=== PATIENT | male | born 1975 | race Caucasian/White ===

== ENCOUNTER 2023-03-26 14:01 | Emergency (ER) | payer OTHER, SELFPAY ==
[2023-03-26 15:11] VITALS: BP 155/86; PULSE 97; RESP 18; TEMP 36.8; O2SAT 97; BMI 41.0
--- NOTE | 2023-03-26 15:14 | ED_ITS ---
HPI - General Adult General Chief complaint: Syncope Stated complaint: reffered by urgent care Time Seen by Provider: 03/26/23 16:03 Source: patient Mode of arrival: ambulatory Limitations: no limitations History of Present Illness HPI narrative: Patient comes to the emergency room complaining of a syncopal episode and a laceration to the upper lip. Patient states that yesterday night, patient and his son went to a concert, went to bed around 03:00, woke up late in full panic around a.m. because they were late to take the kid to his summer job. Patient usually takes about 10 minutes to wake up and stand up out of bed. Today, patient stood up fast running, went downstairs, had a syncopal episode, fell for [place]a. Patient states that he never had chest pain or shortness of breath. Shortly after he woke up from passing out, he started feeling back to normal. Since then, patient has been feeling at baseline. Related Data Allergies Allergy/AdvReac Type Severity Reaction Status Date / Time No Known Allergies Allergy Verified 03/26/23 15:17 Review of Systems Review of Systems: Constitutional : No Weight loss, No Fever, No Chills, No Night Sweats, No Fatigue, No Malaise ENT/Mouth : No Hearing loss, No Ear Pain, No Nasal Congestion, No Sinus Pain, No Hoarseness, No sore throat, No Rhinorrhea, No Swallowing Difficulty Eyes: No Eye Pain, No Swelling, No Redness, No Foreign Body, No Discharge, No Vision Changes Cardiovascular : No Chest Pain, No SOB, No Dyspnea on Exertion, No Orthopnea, No Edema, No Palpitations, 1 syncopal episode Respiratory : No Cough, No Sputum, No Wheezing, No Smoke Exposure, No Dyspnea Gastrointestinal : No Nausea, No Vomiting, No Diarrhea, No Constipation, No abdominal Pain, No Hematochezia, No Melena Genitourinary : no irregular bleeding, No Dysuria, No Urinary Frequency, No Hematuria, No Urinary Incontinence, No Urgency, No Flank Pain, No Urinary Flow Changes, No Hesitancy Musculoskeletal : No joint pain, No Myalgias, No Joint Swelling Skin : Laceration to the upper lip No Skin Lesions, No rash Neuro : No Weakness, No Numbness, No Paresthesias, 1 episode of loss of consciousness,, No Dizziness, No Headache Psych : No Anxiety/Panic, No Depression, No SI/HI/AH/VH, No Social Issues, Heme/Lymph: No Bruising, No Bleeding,No Lymphadenopathy Endocrine : No Polyuria, No Polydipsia, No Temperature Intolerance [facility] Social History Social History Smoked in Last 30 Days: No Use of substances other than those prescribed or required for medical reasons: No Advance Directives: No Advance Directives Information Provided: No Physical Exam ED Vital Signs: Vital Signs - 24 hr 03/26/23 15:11 03/26/23 16:58 03/26/23 16:58 Temperature 98.3 F Pulse Rate 97 82 82 Respiratory Rate 18 Blood Pressure 155/86 H 132/78 Pulse Oximetry 97 96 Oxygen Delivery Method Room Air Room Air 03/26/23 17:00 Temperature Pulse Rate 85 Respiratory Rate Blood Pressure 130/70 Pulse Oximetry Oxygen Delivery Method BMI result Body Mass Index 41.0 Const Other: Appearance: Alert. Oriented X3. No acute distress. Eyes: Pupils equal, round and reactive to light. ENT: Pharynx normal. Is a triangular shaped laceration with a flap to the upper lip Neck: Normal inspection. Neck supple. No lymph nodes noted. No crepitus CVS: Normal heart rate and rhythm. Pulses normal. Normal S1 and S2 Respiratory: No respiratory distress. Breath sounds normal. No Wheezing. No rales Abdomen: Soft and nontender. No rigidity. No distention. Skin: Skin warm and dry. Normal skin color. Normal skin turgor. Extremities: No lower extremity edema. No Lacerations. No Rash Neuro: Oriented X 3. No motor deficit. No sensory deficit. Moving all extremities. No slurred speech. CN 2 through 12 grossly intact Psych: calm, cooperative, normal affect Course Course Course Narrative: RME- 47 year old male presents for evaluation of a syncopal episode. He reports he had a late night at a concert. Reports getting home at 2:30am and waking up at 8am to bring his son to work. While running to wake up his son, he passed out and fell forward. He struck his upper lip on a TV stand. Reports feeling well currently. Denies any history of syncope Medications Administered Discontinued Medications Generic Name Dose Route Start Last Admin Trade Name Freq PRN Reason Stop Dose Admin Lidocaine HCl 6 ml 03/26/23 16:18 03/26/23 16:27 Lidocaine Hcl 2% 2 Ml Vial INFILTRATI 03/26/23 16:19 6 ml ONCE ONE Administration Procedures Laceration Laceration 1: Site: lip Size (cm): 1 Description: stellate, flap and irregular Depth: simple, single layer Local Anesthetic: lidocaine 2% Amount of anesthesia used (mL): 4 Pre-repair: irrigated extensively Skin layer closed with: other (Chromic gut) Size (cm): 5-0 Number of sutures: 6 Technique: simple, interrupted Medical Decision Making Medical Decision Making [facility] Narrative: Multiple calls and EKG,: Sinus rhythm, holidays eyes, necessitating additional ablation, no T-wave inversion, QTC 402 -troponin 1 is negative, which has a pain 7 hours after a syncopal episode -from patient's history, patient likely had a mild orthostatic hypotension leading to a syncopal episode. Patient's orthostatic vitals were negative, however they were pretty close of being negative on numbers. Patient was not lightheaded. -patient's lip was repaired with chromic gut 5-0, 6 stitches were applied Lab Data 03/26/23 15:27 03/26/23 15:27 Labs: Lab Results 03/26/23 03/26/23 03/26/23 Range/Units 15:27 15:27 15:27 WBC 12.6 H (4.8-10.8) X10*3/uL RBC 5.40 (4.60-5.80) X10*6/uL Hgb 16.1 (14.0-18.0) g/dl Hct 46.9 (42.0-52.0) % MCV 86.9 (80.0-98.0) fL MCH 29.8 (27.0-33.0) pg MCHC 34.3 (31.0-36.0) g/dl RDW 13.1 (11.0-16.0) % Plt Count 227 (160-400) X10*3/uL MPV 10.1 (9.4-12.4) fL Immature Gran % (Auto) 0.2 (0.0-0.4) % Neut % (Auto) 79.4 H (45-73) % Lymph % (Auto) 13.7 L (20-40) % [place] % (Auto) 6.3 (2-11) % Eos % (Auto) 0.2 (0-4) % Baso % (Auto) 0.2 (0-2) % Lymph # (Auto) 1.7 (1.2-4.9) X10*3/uL [place] # (Auto) 0.8 (0.1-1.2) X10*3/uL Eos # (Auto) 0.0 (0.0-0.4) X10*3/uL Baso # (Auto) 0.0 (0.0-0.2) X10*3/uL Abs Immat Gran (auto) 0.03 (0.00-0.03) X10*3/uL Absolute Neuts (auto) 10.0 H (2.0-8.3) x10*3/uL Absolute Nucleated RBC 0.000 (0.0-0.012) X10*3/uL Nucleated RBC % (auto) 0.0 (0.0-0.2) /100WBC Sodium 140 (135-145) mmol/L Potassium 3.9 (3.3-5.1) mmol/L Chloride 107 (96-108) mmol/L Carbon Dioxide 23 (22-29) mmol/L Anion Gap 14 (12-20) BUN 12 (9-16) mg/dL Creatinine 0.88 (0.5-1.4) mg/dL Estim Creat Clear Calc 132.1 Estimated GFR > 60 Random Glucose 121 H (60-115) mg/dL Calcium 9.7 (8.4-10.2) mg/dL Total Bilirubin 0.6 (0.0-1.0) mg/dL AST 28 (5-37) U/L ALT 35 (0-40) U/L Alkaline Phosphatase 72 (39-117) U/L Troponin I High Sens < 2.7 (<3.5-35.0) ng/L Total Protein 7.7 (6.5-8.0) g/dL Albumin 4.3 (3.5-5.0) g/dL Lipase 19 (8-78) U/L Discharge Plan Discharge Clinical Impression: Syncope due to orthostatic hypotension, Laceration of lip Patient Disposition: Home, Self-Care Instructions: Laceration (ED), Syncope (ED) Additional Instructions: Please follow-up with your primary care physician tomorrow. If you have any worsening or new symptoms, please return to the emergency room or call 911
--- NOTE | 2023-03-26 15:17 | ECG_ITS ---
Test Reason : SYNCOPE Blood Pressure : / mmHG Vent. Rate : 085 BPM Atrial Rate : 085 BPM P-R Int : 132 ms QRS Dur : 082 ms QT Int : 338 ms P-R-T Axes : 025 016 026 degrees QTc Int : 402 ms Normal sinus rhythm Nonspecific T wave abnormality Borderline ECG No previous ECGs available Referred By: Austin Reyna Electronically Signed By:LEWIS HUBER
[2023-03-26 15:30] LABS: MANUAL DIFF FLAG NO
[2023-03-26 15:32] LABS: Basophils Percent Auto 0.2 % (0-2); Eosinophils Percent Auto 0.2 % (0-4); Hematocrit 46.9 % (42.0-52.0); Hemoglobin 16.1 g/dl (14.0-18.0); Imm Gran Abs Auto 0.03 X10*3/uL (0.00-0.03); Imm Gran Pct Auto 0.2 % (0.0-0.4); Lymphocytes Absolute Auto 1.7 X10*3/uL (1.2-4.9); Lymphocytes Percent Auto 13.7 % (20-40); Mean Corpuscular HGB Conc 34.3 g/dl (31.0-36.0); Mean Corpuscular Hemoglobin 29.8 pg (27.0-33.0); Mean Corpuscular Volume 86.9 fL (80.0-98.0); Mean Platelet Volume 10.1 fL (9.4-12.4); Monocytes Absolute Auto 0.8 X10*3/uL (0.1-1.2); Monocytes Percent Auto 6.3 % (2-11); Neutrophils Percent Auto 79.4 % (45-73); Platelet Count 227 X10*3/uL (160-400); Red Cell Distribution Width 13.1 % (11.0-16.0); White Blood Count 12.6 X10*3/uL (4.8-10.8)
[2023-03-26 15:47] LABS: Alanine Aminotransferase 35 U/L (0-40); Albumin Level 4.3 g/dL (3.5-5.0); Alkaline Phosphatase 72 U/L (39-117); Anion Gap 14 (12-20); Aspartate Amino Transferase 28 U/L (5-37); Bilirubin Total 0.6 mg/dL (0.0-1.0); Blood Urea Nitrogen 12 mg/dL (9-16); Calcium 9.7 mg/dL (8.4-10.2); Carbon Dioxide 23 mmol/L (22-29); Chloride 107 mmol/L (96-108); Creatinine Clr Calc Pharmacy 132.1; Estimated Glomerular Filt Rate > 60; Glucose Random 121 mg/dL (60-115); Lipase 19 U/L (8-78); Potassium 3.9 mmol/L (3.3-5.1); Sodium 140 mmol/L (135-145); Total Protein 7.7 g/dL (6.5-8.0)
[2023-03-26 16:00] LABS: Troponin-I High Sensitivity < 2.7 ng/L (<3.5-35.0)
[2023-03-26 16:58] VITALS: BP 132/78; PULSE 82; O2SAT 96
[2023-03-26 17:00] VITALS: BP 130/70; PULSE 85
[2023-03-26 17:01] VITALS: BP 111/71; PULSE 90
--- NOTE | 2023-03-26 17:24 | PC.NURSE ---
lip laceration closed with [address] falk, with no incident with dissolvable stitches. lines approximated no bleeding.
== END 2023-03-26 17:27 | disposition home or self-care (01) ==
PROVIDERS: Physician Assistant; Emergency Provider Emergency Medicine; PCP Internal Medicine
DX: S01.511A Laceration without foreign body of lip, initial encounter (principal); R55 Syncope and collapse; W01.0XXA Fall on same level from slipping, tripping and stumbling without subsequent striking against object, initial encounter; Y93.9 Activity, unspecified; Y92.9 Unspecified place or not applicable; Y99.9 Unspecified external cause status; Z79.899 Other long term (current) drug therapy
CPT/HCPCS: 12051; 36415; 80053; 83690; 84484; 85025; 93005; 99284; 99285